=== PATIENT | female | born 1950 | race Caucasian/White ===

== ENCOUNTER → 2016-12-20 | Outpatient (CLI) | payer MEDICARE ==
[~2016-12-20] MED LIST: ATEN25TA PO; BISA10SU65 PR; CETI10CA PO; CYCL-259 PO; DIAZ5TAB4 PO; LEVO88TA4 PO; NAPR500T PO; OMEP-110 PO; SERT25TA3 PO; SIMV5TAB5 PO; TIZA2CAP2 PO
== END | disposition home or self-care (01) ==
LOC: CFH 14:14
PROVIDERS: ATTEND Nurse Practitioner
DX: I65.23 Occlusion and stenosis of bilateral carotid arteries (principal); E78.2 Mixed hyperlipidemia
CPT/HCPCS: 93880

== ENCOUNTER → 2017-05-31 | Outpatient (CLI) | payer MEDICARE ==
[~2017-05-31] MED LIST changes: +NAPR-856 PO; -NAPR500T PO
== END ==
LOC: CFH 09:28
PROVIDERS: ATTEND Licensed Practical Nurse
DX: Z13.820 Encounter for screening for osteoporosis (principal); M80.08XA Age-related osteoporosis with current pathological fracture, vertebra(e), initial encounter for fracture; N95.8 Other specified menopausal and perimenopausal disorders
CPT/HCPCS: 77080

== ENCOUNTER 2017-07-06 09:40 | Emergency (ER) | payer MEDICARE ==
[~2017-07-06] VITALS: Ht 165.1 cm; Wt 78.2 kg
[2017-07-06 09:43] VITALS: BP 134/74
== END 2017-07-06 11:09 | disposition home or self-care (01) ==
LOC: ED 11:00
DX: T78.3XXA Angioneurotic edema, initial encounter (principal); J02.8 Acute pharyngitis due to other specified organisms; B97.89 Other viral agents as the cause of diseases classified elsewhere; Z85.819 Personal history of malignant neoplasm of unspecified site of lip, oral cavity, and pharynx; Z85.850 Personal history of malignant neoplasm of thyroid; Z87.891 Personal history of nicotine dependence
CPT/HCPCS: 99283

== ENCOUNTER → 2018-01-05 | Outpatient (CLI) | payer MEDICARE ==
[~2018-01-05] MED LIST changes: +CETI-158 PO; +DULO30CA2 PO; +LEVO137T3 PO; +ROSU10TA PO
[2018-01-05 11:23] LABS: BASOPHILS # (AUTO) 0.02 x10^3/uL (0-0.1); BASOPHILS % (AUTO) 0 % (0-1); EOSINOPHILS # (AUTO) 0.13 x10^3/uL (0-0.4); EOSINOPHILS % (AUTO) 2 % (1-7); LYMPHOCYTES % (AUTO) 23 % (22-44); MD NO; MEAN CORPUSCULAR HGB CONC 34.1 g/dL (32.4-35.8); MEAN CORPUSCULAR VOLUME 93.9 fL (80-100); MEAN PLATELET VOLUME 7.7 fL (7.4-10.4); MONOCYTES # (AUTO) 0.31 x10^3/uL (0.2-0.8); MONOCYTES % (AUTO) 5 % (2-9); NEUTROPHILS # (AUTO) 4.15 x10^3/uL (1.8-6.8); NEUTROPHILS % (AUTO) 69 % (42-75); PLATELET COUNT 246 x10^3/uL (130-400); RED BLOOD COUNT 4.47 x10^6/uL (3.82-5.3); RED CELL DISTRIBUTION WIDTH 13.9 % (9.6-15.2)
[2018-01-05 11:30] LABS: ANION GAP 7 mmol/L (5-15); CHLORIDE 108 mmol/L (98-107)
[2018-01-05 11:41] LABS: MICROSCOPIC INDICATED
[2018-01-05 15:16] LABS: CULTURE INDICATED? NO
== END | disposition home or self-care (01) ==
LOC: STAR 10:11
PROVIDERS: ATTEND Orthopaedic Surgery
DX: Z01.818 Encounter for other preprocedural examination (principal); M17.11 Unilateral primary osteoarthritis, right knee
CPT/HCPCS: 36415; 80048; 81001; 85025; 87081; 87147; 93005

== ENCOUNTER 2018-01-18 07:29 | Inpatient (IN) | payer MEDICARE ==
[~2018-01-18] VITALS: Ht 165.1 cm; Wt 82.5 kg
[2018-01-18] MEDS ORDERED: LACTATED RINGERS 1,000 ML IV SCH (07:44)
[2018-01-18] MEDS ORDERED: ACETAMINOPHEN 500 MG TABLET PO ONE (08:00)
[2018-01-18] MEDS ORDERED: GABAPENTIN 300 MG CAPSULE PO ONE (08:00)
[2018-01-18] MEDS ORDERED: SCOPOLAMINE PATCH, 1.5MG PATCH.TD72 TD ONE (08:00)
[2018-01-18 08:01] VITALS: BP 130/92
[2018-01-18] MEDS ORDERED: MIDAZOLAM 1 MG/ML, 2ML ONE (08:28)
[2018-01-18] MEDS ORDERED: FENTANYL PF 250 MCG/5ML ONE (08:28)
[2018-01-18] MEDS ORDERED: ROPIvacaine/PF 0.2%, 20 ML ONE (09:27)
[2018-01-18] MEDS ORDERED: SODIUM CHLORIDE 0.9% 100 ML ONE (09:27)
[2018-01-18] MEDS ORDERED: TRANEXAMIC ACID 100 MG/ML, 10ML ONE (09:27)
[2018-01-18] MEDS ORDERED: KETOROLAC 60 MG/2 ML ONE (09:27)
[2018-01-18] MEDS ORDERED: EPINEPHRINE 1 MG/ML, 1ML ONE (09:27)
[2018-01-18] MEDS ORDERED: CEFAZOLIN 1,000 MG ONE (10:05)
[2018-01-18] MEDS ORDERED: DEXAMETHASONE 4 MG/ML, 1ML ONE (10:05)
[2018-01-18] MEDS ORDERED: PROPOFOL 10 MG/ML, 20ML ONE (10:05)
[2018-01-18] MEDS ORDERED: ONDANSETRON 2MG/ML, 2ML ONE (10:05)
[2018-01-18] MEDS ORDERED: LABETALOL 5MG/ML, 20ML IV PRN (11:00)
[2018-01-18] MEDS ORDERED: MEPERIDINE/PF 25MG/0.5ML IVPush PRN (11:00)
[2018-01-18] MEDS ORDERED: OXYcodone 5 MG/5 ML ORAL.SOL UDC PO PRN (11:00)
[2018-01-18] MEDS ORDERED: ONDANSETRON 2MG/ML, 2ML IVPush PRN (11:00)
[2018-01-18] MEDS ORDERED: ALBUTEROL SULFATE 2.5 MG/3 ML NPPB PRN (11:00)
[2018-01-18] MEDS ORDERED: KETOROLAC 30 MG/1 ML IV PRN (11:00)
[2018-01-18] MEDS ORDERED: METOCLOPRAMIDE 5 MG/ML, 2ML IV PRN (11:00)
[2018-01-18] MEDS ORDERED: FENTANYL PF 100 MCG/2ML IV PRN (11:00)
[2018-01-18] MEDS ORDERED: HYDROmorphone 1 MG/ML, 1ML IV PRN ×2 (11:00→12:00)
[2018-01-18] MEDS ORDERED: hydrALAzine 20 MG/ML, 1ML IV PRN (11:00)
[2018-01-18] MEDS ORDERED: PROMETHAZINE 25 MG/ML, 1ML IV PRN (11:00)
[2018-01-18] MEDS ORDERED: ONDANSETRON 4 MG TABLET PO PRN (12:00)
[2018-01-18] MEDS ORDERED: CETIRIZINE 10 MG TABLET PO PRN (12:00)
[2018-01-18] MEDS ORDERED: HYDROcodone/APAP 5/325 TABLET PO PRN (12:00)
[2018-01-18] MEDS ORDERED: ZOLPIDEM 5MG TABLET PO PRN (12:00)
[2018-01-18] MEDS ORDERED: PROMETHAZINE 12.5 MG SUPP PR PRN (12:00)
[2018-01-18] MEDS ORDERED: DIAZEPAM 5 MG TABLET PO PRN (12:00)
[2018-01-18] MEDS ORDERED: ONDANSETRON 2MG/ML, 2ML IV PRN (12:00)
[2018-01-18] MEDS ORDERED: MAGNESIUM HYDROXIDE 8%, 30ML UDC PO PRN (12:00)
[2018-01-18] MEDS ORDERED: ALUMINUM/MAG/SIMETHICONE 30 ML UDC PO PRN (12:00)
[2018-01-18] MEDS ORDERED: SENNA/DOCUSATE TABLET PO PRN (12:00)
[2018-01-18] MEDS ORDERED: TRANEXAMIC ACID 1,000 MG in SODIUM CHLORIDE 0.9% 100 ML IVPB ONE (12:00)
[2018-01-18] MEDS ORDERED: BISACODYL 10 MG SUPP PR PRN (12:00)
[2018-01-18] MEDS ORDERED: PROMETHAZINE 25 MG/ML, 1ML IM PRN (12:00)
[2018-01-18] MEDS ORDERED: DIPHENHYDRAMINE 25 MG CAPSULE PO PRN (12:00)
[2018-01-18] MEDS ORDERED: DIAZEPAM 5 MG TABLET ONE (12:03)
[2018-01-18 14:00] VITALS: BP 122/76
[2018-01-18] MEDS: OXYcodone IR 5MG TABLET PO PRN ×3 (15:10→20:57)
[2018-01-18] MEDS: D5%-0.45% NACL 1,000 ML IV SCH ×2 (15:16→21:36)
[2018-01-18] MEDS: CEFAZOLIN PMX 2GM/50ML 50 ML IVPB SCH (17:56)
[2018-01-18] MEDS: ASPIRIN 81 MG TABLET EC PO SCH (18:29)
[2018-01-18] MEDS: DOCUSATE 100 MG CAPSULE PO SCH (20:49)
[2018-01-18] MEDS: TIZANIDINE 2MG TABLET PO SCH (20:50)
[2018-01-18] MEDS: ATORVASTATIN 20 MG TABLET PO SCH ×2 (20:50→20:54)
[2018-01-18 21:01] VITALS: BP 116/71
[2018-01-18 22:55] VITALS: BP 96/57
[2018-01-19] MEDS: CEFAZOLIN PMX 2GM/50ML 50 ML IVPB SCH (01:50)
[2018-01-19] MEDS: ASPIRIN 81 MG TABLET EC PO SCH ×2 (05:42→18:09)
[2018-01-19] MEDS: LEVOTHYROXINE 137 MCG TABLET PO SCH (05:42)
[2018-01-19 05:55] VITALS: BP 108/69
[2018-01-19] MEDS: OXYcodone IR 5MG TABLET PO PRN ×4 (05:58→20:55)
[2018-01-19] MEDS ORDERED: DEXAMETHASONE 4 MG/ML, 1ML IVPush SCH (06:00)
[2018-01-19] MEDS: D5%-0.45% NACL 1,000 ML IV SCH ×2 (07:36→17:36)
[2018-01-19] MEDS: MULTIVITAMINS/MINERALS TABLET PO SCH (08:12)
[2018-01-19] MEDS: DOCUSATE 100 MG CAPSULE PO SCH ×2 (08:12→20:55)
[2018-01-19] MEDS: OMEPRAZOLE 20 MG CAPSULE.DR PO SCH (08:12)
[2018-01-19] MEDS: DULOXETINE 30 MG CAPSULE.DR PO SCH (08:12)
[2018-01-19] MEDS: ATENOLOL 25 MG TABLET PO SCH (08:12)
[2018-01-19 09:24] VITALS: BP 97/62
[2018-01-19] MEDS: KETOROLAC 30 MG/1 ML IV SCH ×2 (12:33→20:27)
[2018-01-19 13:20] VITALS: BP 120/76
[2018-01-19] MEDS ORDERED: OXYC5CAP2 PO (16:00)
[2018-01-19] MEDS ORDERED: ASPI-496 PO (16:00)
[2018-01-19 19:19] VITALS: BP 128/68
[2018-01-19] MEDS: ATORVASTATIN 20 MG TABLET PO SCH (20:58)
[2018-01-19] MEDS: TIZANIDINE 2MG TABLET PO SCH (21:08)
[2018-01-20 02:31] VITALS: BP 124/69
[2018-01-20] MEDS: D5%-0.45% NACL 1,000 ML IV SCH ×3 (03:24→22:51)
[2018-01-20] MEDS: OXYcodone IR 5MG TABLET PO PRN ×4 (04:10→17:59)
[2018-01-20] MEDS: KETOROLAC 30 MG/1 ML IV SCH (04:11)
[2018-01-20] MEDS: LEVOTHYROXINE 137 MCG TABLET PO SCH (05:44)
[2018-01-20] MEDS: ASPIRIN 81 MG TABLET EC PO SCH ×2 (05:44→17:59)
[2018-01-20] MEDS: OMEPRAZOLE 20 MG CAPSULE.DR PO SCH (08:15)
[2018-01-20] MEDS: DOCUSATE 100 MG CAPSULE PO SCH ×2 (08:15→20:21)
[2018-01-20] MEDS: MULTIVITAMINS/MINERALS TABLET PO SCH (08:15)
[2018-01-20] MEDS: DULOXETINE 30 MG CAPSULE.DR PO SCH (08:15)
[2018-01-20] MEDS: ATENOLOL 25 MG TABLET PO SCH (08:15)
[2018-01-20 09:55] VITALS: BP 145/80
[2018-01-20 13:35] VITALS: BP 166/76
[2018-01-20 19:41] VITALS: BP 155/69
[2018-01-20] MEDS: TIZANIDINE 2MG TABLET PO SCH (20:21)
[2018-01-20] MEDS: ATORVASTATIN 20 MG TABLET PO SCH (20:22)
[2018-01-21 02:30] VITALS: BP 117/75
[2018-01-21] MEDS: OXYcodone IR 5MG TABLET PO PRN ×2 (05:02→09:16)
[2018-01-21] MEDS: ASPIRIN 81 MG TABLET EC PO SCH (06:06)
[2018-01-21] MEDS: LEVOTHYROXINE 137 MCG TABLET PO SCH (06:06)
[2018-01-21] MEDS: OMEPRAZOLE 20 MG CAPSULE.DR PO SCH (07:30)
[2018-01-21] MEDS: DOCUSATE 100 MG CAPSULE PO SCH (08:56)
[2018-01-21] MEDS: ATENOLOL 25 MG TABLET PO SCH (08:57)
[2018-01-21] MEDS: MULTIVITAMINS/MINERALS TABLET PO SCH (08:57)
[2018-01-21] MEDS: DULOXETINE 30 MG CAPSULE.DR PO SCH (08:57)
[2018-01-21] MEDS: D5%-0.45% NACL 1,000 ML IV SCH (08:57)
[2018-01-21 09:26] VITALS: BP 95/63
== END 2018-01-21 09:45 | disposition home health service (06) | DRG 470 ==
LOC: OUT 07:29 → ORIP 11:36 → 4NOR 13:05
PROVIDERS: ADMIT Orthopaedic Surgery; ATTEND Orthopaedic Surgery
PROC: 0SRC0J9 Replacement of Right Knee Joint with Synthetic Substitute, Cemented, Open Approach (ICD-10-PCS; principal; 2018-01-18 10:45)
DX: M17.11 Unilateral primary osteoarthritis, right knee (principal); K21.9 Gastro-esophageal reflux disease without esophagitis; M21.161 Varus deformity, not elsewhere classified, right knee; M79.7 Fibromyalgia; Z88.5 Allergy status to narcotic agent; Z88.8 Allergy status to other drugs, medicaments and biological substances
CPT/HCPCS: 36415; 85014; 85018; C1713; G0378; J0171; J0690; J1100; J1885; J2250; J2405; J2704; J2795; J3010; C1776; J7120

== ENCOUNTER → 2018-05-16 | Outpatient (CLI) | payer MEDICARE ==
[~2018-05-16] MED LIST changes: +ASPI-496 PO; +OXYC5CAP2 PO; +SIMV5TAB14 PO; -SIMV5TAB5 PO
[2018-05-16 12:20] LABS: ANION GAP 2 mmol/L (5-15); CALCIUM 9.5 mg/dL (8.5-10.1); CHLORIDE 110 mmol/L (98-107)
[2018-05-16 12:21] LABS: CREATININE 1.01 mg/dL (0.55-1.02)
[2018-05-16 12:33] LABS: MICROSCOPIC AUTO
[2018-05-16 12:51] LABS: CULTURE INDICATED? YES
[2018-05-16 13:23] LABS: BASOPHILS # (AUTO) 0.02 x10^3/uL (0-0.1); BASOPHILS % (AUTO) 0 % (0-1); EOSINOPHILS # (AUTO) 0.17 x10^3/uL (0-0.4); EOSINOPHILS % (AUTO) 3 % (1-7); LYMPHOCYTES # (AUTO) 1.75 x10^3/uL (1-3.4); LYMPHOCYTES % (AUTO) 28 % (22-44); MD NO; MEAN CORPUSCULAR HGB CONC 33.6 g/dL (32.4-35.8); MEAN CORPUSCULAR VOLUME 92.4 fL (80-100); MEAN PLATELET VOLUME 8.4 fL (7.4-10.4); MONOCYTES # (AUTO) 0.38 x10^3/uL (0.2-0.8); MONOCYTES % (AUTO) 6 % (2-9); NEUTROPHILS # (AUTO) 4.01 x10^3/uL (1.8-6.8); NEUTROPHILS % (AUTO) 63 % (42-75); PLATELET COUNT 259 x10^3/uL (130-400); RED BLOOD COUNT 4.67 x10^6/uL (3.82-5.3); RED CELL DISTRIBUTION WIDTH 15.3 % (9.6-15.2)
== END | disposition home or self-care (01) ==
LOC: STAR 10:49
PROVIDERS: ATTEND Orthopaedic Surgery
DX: Z01.818 Encounter for other preprocedural examination (principal); M17.12 Unilateral primary osteoarthritis, left knee
CPT/HCPCS: 36415; 80048; 81001; 85025; 87081; 87086; 87147; 93005

== ENCOUNTER 2018-05-24 08:23 | Inpatient (IN) | payer MEDICARE ==
[~2018-05-24] VITALS: Ht 166.4 cm; Wt 85.5 kg
[~2018-05-24 08:23] MED LIST changes: -ROSU10TA PO; +ROSU10TA2 PO
[2018-05-24] MEDS ORDERED: MUPI22OI2 NAS (09:13)
[2018-05-24] MEDS ORDERED: LACTATED RINGERS 1,000 ML IV SCH (09:16)
[2018-05-24] MEDS ORDERED: ACETAMINOPHEN 500 MG TABLET PO ONE (09:30)
[2018-05-24] MEDS ORDERED: GABAPENTIN 300 MG CAPSULE PO ONE (09:30)
[2018-05-24] MEDS ORDERED: OXYcodone IR 5MG TABLET PO ONE (09:30)
[2018-05-24] MEDS ORDERED: FAMOTIDINE 20 MG TABLET PO ONE (09:30)
[2018-05-24 09:54] LABS: ALANINE AMINOTRANSFERASE 28 U/L (12-78); ALBUMIN 3.9 g/dL (3.4-5.0); ANION GAP 5 mmol/L (5-15); CHLORIDE 110 mmol/L (98-107); CREATININE 0.85 mg/dL (0.55-1.02)
[2018-05-24 09:56] LABS: ALKALINE PHOSPHATASE 102 U/L (45-117); BILIRUBIN,TOTAL 0.5 mg/dL (0.2-1.0); TOTAL PROTEIN 6.9 g/dL (6.4-8.2)
[2018-05-24] MEDS ORDERED: CEFAZOLIN 1,000 MG ONE ×2 (10:44)
[2018-05-24] MEDS ORDERED: MIDAZOLAM 1 MG/ML, 2ML ONE (10:44)
[2018-05-24] MEDS ORDERED: PROPOFOL 10 MG/ML, 20ML ONE ×2 (10:44)
[2018-05-24] MEDS ORDERED: FENTANYL PF 100 MCG/2ML ONE (10:44)
[2018-05-24] MEDS ORDERED: ROPIvacaine/PF 0.5%, 30 ML ONE (10:46)
[2018-05-24] MEDS ORDERED: TRANEXAMIC ACID 100 MG/ML, 10ML ONE ×3 (11:24→12:37)
[2018-05-24] MEDS ORDERED: ROPIvacaine/PF 0.2%, 20 ML ONE (11:24)
[2018-05-24] MEDS ORDERED: KETOROLAC 60 MG/2 ML ONE (11:24)
[2018-05-24] MEDS ORDERED: EPINEPHRINE 1 MG/ML, 1ML ONE (11:24)
[2018-05-24] MEDS ORDERED: SODIUM CHLORIDE 0.9% 50 ML ONE (11:24)
[2018-05-24] MEDS ORDERED: PHENYLEPHRINE 10 MG/ML ONE (11:57)
[2018-05-24] MEDS ORDERED: DEXAMETHASONE 4 MG/ML, 5ML ONE (12:20)
[2018-05-24] MEDS ORDERED: ONDANSETRON 2MG/ML, 2ML ONE (12:20)
[2018-05-24] MEDS ORDERED: OXYcodone 5 MG/5 ML ORAL.SOL UDC PO PRN (13:00)
[2018-05-24] MEDS ORDERED: FENTANYL PF 100 MCG/2ML IV PRN (13:00)
[2018-05-24] MEDS ORDERED: PROMETHAZINE 25 MG/ML, 1ML IV PRN (13:00)
[2018-05-24] MEDS ORDERED: HYDROmorphone 2 MG/ML, 1ML IVPush PRN (13:00)
[2018-05-24] MEDS ORDERED: TRANEXAMIC ACID 1,500 MG in SODIUM CHLORIDE 0.9% 100 ML IVPB ONE (13:30)
[2018-05-24] MEDS ORDERED: MAGNESIUM HYDROXIDE 8%, 30ML UDC PO PRN (13:30)
[2018-05-24] MEDS ORDERED: DIAZEPAM 5 MG TABLET PO PRN ×2 (13:30)
[2018-05-24] MEDS ORDERED: SENNA/DOCUSATE TABLET PO PRN (13:30)
[2018-05-24] MEDS ORDERED: CETIRIZINE 10 MG TABLET PO PRN (13:30)
[2018-05-24] MEDS ORDERED: PROMETHAZINE 12.5 MG SUPP PR PRN (13:30)
[2018-05-24] MEDS ORDERED: ALUMINUM/MAG/SIMETHICONE 30 ML UDC PO PRN (13:30)
[2018-05-24] MEDS ORDERED: DIPHENHYDRAMINE 25 MG CAPSULE PO PRN (13:30)
[2018-05-24] MEDS ORDERED: BISACODYL 10 MG SUPP PR PRN (13:30)
[2018-05-24] MEDS ORDERED: HYDROcodone/APAP 5/325 TABLET PO PRN (13:30)
[2018-05-24] MEDS ORDERED: HYDROmorphone 1 MG/ML, 1ML AMP IV PRN (13:30)
[2018-05-24 15:15] VITALS: BP 110/63
[2018-05-24] MEDS ORDERED: PROMETHAZINE 25 MG/ML, 1ML IM PRN (15:30)
[2018-05-24] MEDS ORDERED: ACETAMINOPHEN 325 MG TABLET PO PRN (15:30)
[2018-05-24] MEDS ORDERED: ONDANSETRON 2MG/ML, 2ML IV PRN (15:30)
[2018-05-24] MEDS ORDERED: ONDANSETRON 4 MG TABLET PO PRN (15:30)
[2018-05-24] MEDS: OXYcodone IR 5MG TABLET PO PRN (17:51)
[2018-05-24] MEDS: ASPIRIN 81 MG TABLET EC PO SCH (17:51)
[2018-05-24] MEDS: D5%-0.45% NACL 1,000 ML IV SCH (17:52)
[2018-05-24 18:40] VITALS: BP 105/68
[2018-05-24] MEDS ORDERED: CEFAZOLIN PMX 2GM/50ML 50 ML IVPB SCH (19:00)
[2018-05-24] MEDS: CEFAZOLIN PMX 2GM/50ML 50 ML IVPB SCH (19:46)
[2018-05-24] MEDS ORDERED: ZOLPIDEM 5MG TABLET PO PRN (21:00)
[2018-05-24] MEDS: TIZANIDINE 4MG TABLET PO SCH (21:28)
[2018-05-24] MEDS: ATORVASTATIN 20 MG TABLET PO SCH (21:28)
[2018-05-24] MEDS: DOCUSATE 100 MG CAPSULE PO SCH (21:28)
[2018-05-24] MEDS: MUPIROCIN OINT 2%, 22GM NAS SCH (21:53)
[2018-05-24 23:41] VITALS: BP 142/73
[2018-05-25 03:25] VITALS: BP 100/93
[2018-05-25] MEDS: D5%-0.45% NACL 1,000 ML IV SCH ×3 (03:38→22:26)
[2018-05-25] MEDS: CEFAZOLIN PMX 2GM/50ML 50 ML IVPB SCH (04:08)
[2018-05-25] MEDS: LEVOTHYROXINE 137 MCG TABLET PO SCH (05:48)
[2018-05-25] MEDS: ASPIRIN 81 MG TABLET EC PO SCH ×2 (05:48→17:53)
[2018-05-25] MEDS ORDERED: DEXAMETHASONE 4 MG/ML, 1ML IVPush SCH (06:00)
[2018-05-25 07:48] VITALS: BP 124/81
[2018-05-25] MEDS: ATENOLOL 25 MG TABLET PO SCH (07:50)
[2018-05-25] MEDS: OMEPRAZOLE 20 MG CAPSULE.DR PO SCH (07:51)
[2018-05-25] MEDS: MUPIROCIN OINT 2%, 22GM NAS SCH ×2 (07:51→21:28)
[2018-05-25] MEDS: DULOXETINE 30 MG CAPSULE.DR PO SCH (07:51)
[2018-05-25] MEDS: MULTIVITAMINS/MINERALS TABLET PO SCH (07:51)
[2018-05-25] MEDS: DOCUSATE 100 MG CAPSULE PO SCH ×2 (07:51→21:26)
[2018-05-25] MEDS: OXYcodone IR 5MG TABLET PO PRN ×3 (07:53→21:27)
[2018-05-25] MEDS: KETOROLAC 30 MG/1 ML IV SCH ×2 (14:10→21:28)
[2018-05-25 15:14] VITALS: BP 130/74
[2018-05-25 18:52] VITALS: BP 125/58
[2018-05-25] MEDS: ATORVASTATIN 20 MG TABLET PO SCH (21:27)
[2018-05-25] MEDS: TIZANIDINE 4MG TABLET PO SCH (21:27)
[2018-05-26 03:20] VITALS: BP 96/61
[2018-05-26] MEDS: LEVOTHYROXINE 137 MCG TABLET PO SCH (05:15)
[2018-05-26] MEDS: KETOROLAC 30 MG/1 ML IV SCH (05:15)
[2018-05-26] MEDS: ASPIRIN 81 MG TABLET EC PO SCH (05:15)
[2018-05-26] MEDS: OXYcodone IR 5MG TABLET PO PRN (05:20)
[2018-05-26] MEDS: MUPIROCIN OINT 2%, 22GM NAS SCH (08:06)
[2018-05-26] MEDS: MULTIVITAMINS/MINERALS TABLET PO SCH (08:07)
[2018-05-26] MEDS: DOCUSATE 100 MG CAPSULE PO SCH (08:07)
[2018-05-26] MEDS: DULOXETINE 30 MG CAPSULE.DR PO SCH (08:07)
[2018-05-26] MEDS: OMEPRAZOLE 20 MG CAPSULE.DR PO SCH (08:08)
[2018-05-26] MEDS: ATENOLOL 25 MG TABLET PO SCH (08:09)
[2018-05-26 08:10] VITALS: BP 145/82
[2018-05-26] MEDS ORDERED: OXYC5TAB3 PO (08:52)
== END 2018-05-26 09:15 | disposition home health service (06) | DRG 469 ==
LOC: OUT 08:23 → 4NOR 14:44 → OUT 20:50 → 4NOR 20:51 → OBSVTOIN 20:51 → DCLOUNGE 05-26 09:00
PROVIDERS: ADMIT Orthopaedic Surgery; ATTEND Orthopaedic Surgery
PROC: 3E0T3BZ Introduction of Anesthetic Agent into Peripheral Nerves and Plexi, Percutaneous Approach (ICD-10-PCS; 2018-05-24)
PROC: 0SRD069 Replacement of Left Knee Joint with Oxidized Zirconium on Polyethylene Synthetic Substitute, Cemented, Open Approach (ICD-10-PCS; principal; 2018-05-24 09:45)
DX: M17.12 Unilateral primary osteoarthritis, left knee (principal); R53.2 Functional quadriplegia; K21.9 Gastro-esophageal reflux disease without esophagitis; I10 Essential (primary) hypertension; E78.5 Hyperlipidemia, unspecified; E03.9 Hypothyroidism, unspecified; M21.162 Varus deformity, not elsewhere classified, left knee; Z60.2 Problems related to living alone; F41.9 Anxiety disorder, unspecified; Z88.6 Allergy status to analgesic agent; Z88.5 Allergy status to narcotic agent; Z88.8 Allergy status to other drugs, medicaments and biological substances
CPT/HCPCS: 36415; 80053; 85014; 85018; C1713; G0378; J0171; J0690; J1100; J1885; J2250; J2405; J2704; J2795; J3010; C1776; J2370

== ENCOUNTER 2018-07-24 11:44 | Emergency (ER) | payer MEDICARE ==
[~2018-07-24] VITALS: Ht 165.1 cm; Wt 82.0 kg
[~2018-07-24 11:44] MED LIST changes: +MUPI22OI2 NAS; +OXYC5TAB3 PO
[2018-07-24 11:54] VITALS: BP 140/84
--- NOTE | 2018-07-24 12:00 | NUR ---
FIRST CONTACT WITH PT. PT STATES "I'VE BEEN SICK WITH A COUGH FOR THE LAST WEEK. IT MIGHT BE PNA." PT'S AOX4. RESPS EVEN AND UNLABORED. PT DENIES ANY PAIN/D/V/N AT THIS TIME. PA AT BEDSIDE TO ASSESS.
--- NOTE | 2018-07-24 13:05 | NUR ---
PT GIVEN DC INSTRUCTIONS. PT AMB TO DC WITH STEADY GAIT. NO ACUTE DISTRESS AT DC.
== END 2018-07-24 13:07 | disposition home or self-care (01) ==
LOC: ED 13:01
DX: J20.8 Acute bronchitis due to other specified organisms (principal); B97.89 Other viral agents as the cause of diseases classified elsewhere; Z90.710 Acquired absence of both cervix and uterus; Z87.891 Personal history of nicotine dependence; Z85.9 Personal history of malignant neoplasm, unspecified; Z85.43 Personal history of malignant neoplasm of ovary; Z85.819 Personal history of malignant neoplasm of unspecified site of lip, oral cavity, and pharynx
CPT/HCPCS: 71046; 99283

== ENCOUNTER → 2019-06-08 | Outpatient (CLI) | payer MEDICARE ==
[~2019-06-08] MED LIST changes: +OMNIPAQUE 350 MG/ML, 150 ML BOTTLE ONE
== END | disposition home or self-care (01) ==
LOC: CFH 13:16
PROVIDERS: ATTEND Nurse Practitioner
DX: M47.812 Spondylosis without myelopathy or radiculopathy, cervical region (principal); M50.30 Other cervical disc degeneration, unspecified cervical region; R05 Cough
CPT/HCPCS: 70491; 71260; Q9967